=== PATIENT | female | born 1950 | race Caucasian/White ===

== ENCOUNTER 2017-08-26 00:01 | Emergency (ER) | payer MEDICAID ==
[2017-08-26 00:07] VITALS: O2SAT 98
--- NOTE | 2017-08-26 04:06 | ED PDOC ---
HPI: Back Time Seen by Provider: 08/26/17 01:24 Chief Complaint (Nursing): Back Pain Chief Complaint (Provider): Back Pain History Per: Patient History/Exam Limitations: no limitations Onset/Duration Of Symptoms: Days (x 1) Current Symptoms Are (Timing): Still Present Quality Of Discomfort: "Pain" Additional Complaint(s): 67 year old female with a history of back pain (for years), DM and HTN presents to the ED complaining of back pain. Patient states pain was bothering her so she called EMS from the senior living. Admits she gets a rash from tags on her clothes. She took no mediation prior to arrival. Denies numbness, weakness, chest pain, shortness of breath, and bladder or bowel incontinence. PMD: Dr. Puma Pierson MD Past Medical History Reviewed: Historical Data, Nursing Documentation, Vital Signs Vital Signs: Last Vital Signs Temp 97.9 F 08/26/17 00:04 Pulse 83 08/26/17 00:04 Resp 16 08/26/17 00:04 BP 150/79 08/26/17 00:04 Pulse Ox 98 08/26/17 00:04 - Medical History PMH: Arthritis, Back Problems, Hypothyroidism - Surgical History Surgical History: No Surg Hx - Family History Family History: States: Unknown Family Hx - Home Medications Home Medications: Ambulatory Orders Medication Instructions Recorded Cyclobenzaprine [Cyclobenzaprine 10 mg PO BID #15 tab 08/26/17 HCl] Naproxen [Naprosyn] 500 mg PO BID #30 tablet 08/26/17 - Allergies Allergies/Adverse Reactions: Allergies Allergy/AdvReac Type Severity Reaction Status Date / Time No Known Allergies Allergy Verified 08/26/17 02:18 Review of Systems ROS Statement: Except As Marked, All Systems Reviewed And Found Negative Genitourinary Female: Negative for: Incontinence (bladder or bowel) Musculoskeletal: Positive for: Back Pain Neurological: Negative for: Weakness, Numbness Physical Exam - Reviewed Nursing Documentation Reviewed: Yes Vital Signs Reviewed: Yes - Physical Exam Appears: Positive for: Non-toxic, No Acute Distress Head Exam: Positive for: ATRAUMATIC, NORMOCEPHALIC Skin: Positive for: Normal Color (evidence of contact dermatitis in lumbar region of spine), Warm, Dry Eye Exam: Positive for: EOMI, Normal appearance, PERRL Neck: Positive for: Normal, Painless ROM, Supple Cardiovascular/Chest: Positive for: Regular Rate, Rhythm Respiratory: Positive for: Normal Breath Sounds. Negative for: Respiratory Distress Gastrointestinal/Abdominal: Positive for: Normal Exam, Soft Back: Positive for: Other ( tenderness to midline and paravertebral musculature in lumbar region). Negative for: Normal Inspection ((-) stepoff) - ECG O2 Sat by Pulse Oximetry: 98 (RA) Pulse Ox Interpretation: Normal Medical Decision Making Medical Decision Making: Time: 01:24 Impression: lower back pain for years in patient with arthritis in acute flare up A/P: --not concerned for serious pathology like cauda equina syndrome, nerve impingement syndrome or AAA. --Likely arthritic flare up Initial Plan: --Flexeril 10 mg PO --Toradol 30 mg PO 0700 Patient ambulatory, feeling better, stable for discharge. Advised to f/u w/ PMD. Scribe Attestation: Documented by Megan Velarde acting as a scribe for Fede Jacob MD. Scribe Attestation: All medical record entries made by the Scribe were at my direction and personally dictated by me. I have reviewed the chart and agree that the record accurately reflects my personal performance of the history, physical exam, medical decision making, and the department course for this patient. I have also personally directed, reviewed, and agree with the discharge instructions and disposition. Disposition - Clinical Impression Clinical Impression: Back pain - Disposition Referrals: Puma Pierson MD [Primary Care Provider] - Disposition: Routine/Home Disposition Time: 07:00 Condition: IMPROVED Prescriptions: Cyclobenzaprine [Cyclobenzaprine HCl] 10 mg PO BID #15 tab Naproxen [Naprosyn] 500 mg PO BID #30 tablet Instructions: Low Back Pain (DC) Forms: [employer] (Azeri)
[2017-08-26 07:31] VITALS: BP 144/70; PULSE 85; RESP 18; TEMP 98
== END 2017-08-26 07:37 | disposition home or self-care (01) ==
LOC: H.ER 00:01
DX: M54.9 Dorsalgia, unspecified (principal)
CPT/HCPCS: 96372; 99282; J1885

== ENCOUNTER 2017-09-13 19:13 | Emergency (ER) | payer MEDICARE, MEDICAID ==
--- NOTE | 2017-09-13 19:44 | ED PDOC ---
HPI: Eye Injury/Pain Time Seen by Provider: 09/13/17 19:20 Chief Complaint (Nursing): Eye Problem Chief Complaint (Provider): Eye Redness History Per: Home Paraprofessional (Reba Mcmillan #[id number]) History/Exam Limitations: no limitations Onset/Duration Of Symptoms: Days (x7) Current Symptoms Are (Timing): Still Present Additional Complaint(s): 67 year old female was brought to the emergency department via EMS complaining of bilateral eye redness beginning six days ago. She denies any pain or discharge from either eye. However, she does complain of itchiness to both eyes. Denies history of seasonal allergies. Patient was seen by an eye doctor and prescribed glasses and Tobradex eye drops. The eye drops were filled today and have been used twice, without any improvement. States she was kicked out of the retirement in [place] due to her eye redness. PMD: Provider TBD Past Medical History Reviewed: Historical Data, Nursing Documentation, Vital Signs Vital Signs: Last Vital Signs Temp 98 F 09/13/17 19:15 Pulse 98 H 09/13/17 19:15 Resp 18 09/13/17 19:15 BP 160/97 H 09/13/17 19:15 Pulse Ox 98 09/13/17 19:15 - Medical History PMH: Arthritis, Back Problems, HTN, Hypothyroidism, Osteoporosis - Surgical History Other surgeries: bilateral cataract surgery - Family History Family History: States: Unknown Family Hx - Living Arrangements Living Arrangements: Other (undomiciled) - Social History Current smoker - smoking cessation education provided: No Alcohol: None Drugs: Denies - Home Medications Home Medications: Ambulatory Orders Medication Instructions Recorded Cyclobenzaprine [Cyclobenzaprine 10 mg PO BID #15 tab 08/26/17 HCl] Naproxen [Naprosyn] 500 mg PO BID #30 tablet 08/26/17 - Allergies Allergies/Adverse Reactions: Allergies Allergy/AdvReac Type Severity Reaction Status Date / Time No Known Allergies Allergy Verified 08/26/17 02:18 Review of Systems ROS Statement: Except As Marked, All Systems Reviewed And Found Negative Eyes: Positive for: Redness, Other (itchy). Negative for: Pain, Vision Change Physical Exam - Reviewed Nursing Documentation Reviewed: Yes Vital Signs Reviewed: Yes - Physical Exam Appears: Positive for: Non-toxic, No Acute Distress Head Exam: Positive for: ATRAUMATIC, NORMAL INSPECTION, NORMOCEPHALIC Skin: Positive for: Normal Color, Warm, Dry Eye Exam: Positive for: EOMI, PERRL, Conjunctival injection (bilateral) Comments: Visual acuity performed: --left 20/30 --right 20/30 - ECG O2 Sat by Pulse Oximetry: 98 (RA) Pulse Ox Interpretation: Normal Medical Decision Making Medical Decision Making: Initial Impression: Conjunctivitis Time: 19:54 Plan: --Will call retirement Eyes examined with flourescein, no uptake noted. Scribe Attestation: Documented by Shanon Andrews, acting as a scribe for Evy Powell PA-C Provider Scribe Attestation: All medical record entries made by the Scribe were at my direction and personally dictated by me. I have reviewed the chart and agree that the record accurately reflects my personal performance of the history, physical exam, medical decision making, and the department course for this patient. I have also personally directed, reviewed, and agree with the discharge instructions and disposition. Disposition - Clinical Impression Clinical Impression: Conjunctivitis - Patient ED Disposition Is Patient to be Admitted: No - Disposition Disposition: Routine/Home Disposition Time: 23:40 Condition: FAIR Instructions: Conjunctivitis (Noninfectious Pinkeye), Conjunctivitis ( Noninfectious Pinkeye) (DC) Forms: [facility] (C[place]riot), [facility] School/Work Excuse
[2017-09-14 04:29] VITALS: BP 142/82; PULSE 82; RESP 16; TEMP 98.6; O2SAT 98
== END 2017-09-14 04:50 | disposition short-term general hospital (02) ==
LOC: H.ER 19:13
DX: H10.9 Unspecified conjunctivitis (principal); I10 Essential (primary) hypertension; E03.9 Hypothyroidism, unspecified; M81.0 Age-related osteoporosis without current pathological fracture

== ENCOUNTER 2017-09-16 16:47 | Emergency (ER) | payer MEDICAID, MEDICARE ==
[2017-09-16 16:50] VITALS: BP 151/80; PULSE 105; RESP 16; TEMP 98.1; O2SAT 96
--- NOTE | 2017-09-16 18:09 | ED PDOC ---
Lower Extremity Pain/Injury Time Seen by Provider: 09/16/17 17:42 Chief Complaint (Nursing): Lower Extremity Problem/Injury Chief Complaint (Provider): leg pains History Per: Patient, Weather Observer (petr cobian #[id number]) Onset/Duration Of Symptoms: Waxing/Waning, Gradual Current Symptoms Are (Timing): Still Present Severity: Moderate Additional History Per: Prior Records Additional Complaint(s): 67yo female presents via EMS c/o body and leg pains, states legs feel swollen. Admits to sleeping at a half-way, often in a chair. Denies fever, trauma/falls or SOB. Past Medical History Reviewed: Historical Data, Nursing Documentation Vital Signs: Last Vital Signs Temp 98.1 F 09/16/17 16:48 Pulse 105 H 09/16/17 16:48 Resp 16 09/16/17 16:48 BP 151/80 H 09/16/17 16:48 Pulse Ox 96 09/16/17 16:48 - Medical History PMH: Arthritis, Back Problems, HTN, Hypothyroidism, Osteoporosis - Family History Family History: States: Unknown Family Hx - Living Arrangements Living Arrangements: Other (half-way) - Social History Current smoker - smoking cessation education provided: No - Home Medications Home Medications: Ambulatory Orders Medication Instructions Recorded Cyclobenzaprine [Cyclobenzaprine 10 mg PO BID #15 tab 08/26/17 HCl] Naproxen [Naprosyn] 500 mg PO BID #30 tablet 08/26/17 Ibuprofen [Motrin Tab] 600 mg PO Q6 PRN #15 tab 09/16/17 - Allergies Allergies/Adverse Reactions: Allergies Allergy/AdvReac Type Severity Reaction Status Date / Time No Known Allergies Allergy Verified 08/26/17 02:18 Review of Systems Constitutional: Negative for: Fever, Chills Cardiovascular: Negative for: Chest Pain Respiratory: Negative for: Cough, Shortness of Breath Gastrointestinal: Negative for: Abdominal Pain Genitourinary Female: Negative for: Dysuria Musculoskeletal: Positive for: Shoulder Pain, Back Pain, Leg Pain, Foot Pain Skin: Negative for: Rash Neurological: Negative for: Weakness, Seizures, Altered Mental Status Psych: Negative for: Suicidal ideation Physical Exam - Reviewed Nursing Documentation Reviewed: Yes Vital Signs Reviewed: Yes - Physical Exam Appears: Positive for: Well, Non-toxic, No Acute Distress Head Exam: Positive for: ATRAUMATIC, NORMAL INSPECTION, NORMOCEPHALIC Skin: Positive for: Normal Color, Warm (cultural not allow full skin exam) Eye Exam: Positive for: EOMI, Normal appearance, PERRL ENT: Positive for: Normal ENT Inspection Neck: Positive for: Normal, Painless ROM Cardiovascular/Chest: Positive for: Regular Rate, Rhythm Respiratory: Positive for: CNT, Normal Breath Sounds Gastrointestinal/Abdominal: Positive for: Normal Exam, Soft Back: Positive for: Normal Inspection Extremity: Positive for: Pedal Edema (b/l LE), Swelling, Other (mild LE erythema chronic appearing, poor LE hygiene). Negative for: Deformity Neurologic/Psych: Positive for: Alert, Oriented - Laboratory Results Result Diagrams: 09/16/17 18:00 09/16/17 18:00 - ECG O2 Sat by Pulse Oximetry: 96 Medical Decision Making Medical Decision Making: workup for likely chronic arthritis/ LE edema initiated Motrin ordered for pain Labs/ Duplex LE ordered Disposition - Clinical Impression Clinical Impression: Leg pain, Leg edema - Patient ED Disposition Is Patient to be Admitted: No - Disposition Referrals: [facility] [Outside] Disposition: Routine/Home Disposition Time: 19:30 Condition: STABLE Additional Instructions: Return to ER for any worse or new symptoms/ Prescriptions: Ibuprofen [Motrin Tab] 600 mg PO Q6 PRN #15 tab PRN Reason: Pain, Moderate (4-7) Instructions: Dependent Edema (DC) Forms: [facility] (Serbian)
[2017-09-16 18:19] LABS: BASO # 0.1 K/uL (0.0-0.2); BASO % 1.1 % (0.0-2.0); EOS # 0.1 K/uL (0.0-0.7); EOS % 1.5 % (0.0-4.0); HEMOGLOBIN 12.4 g/dL (12.0-16.0); LYMPH # 2.2 K/uL (1.0-4.3); MEAN CELL VOLUME 86.9 fl (81.0-99.0); MEAN CORPUSCULAR HEMOGLOBIN 29.2 pg (27.0-31.0); MEAN CORPUSCULAR HGB CONC 33.6 g/dL (33.0-37.0); MEAN PLATELET VOLUME 8.4 fl (7.2-11.7); MONO # 0.6 K/uL (0.0-0.8); MONO % 6.2 % (0.0-10.0); NEUT # 6.6 K/uL (1.8-7.0); NEUT % 68.2 % (50.0-75.0); NRBC % 0.1 % (0.0-0.0); RBC 4.26 Mil/uL (3.80-5.20); WHITE BLOOD COUNT 9.7 K/uL (4.8-10.8)
[2017-09-16 18:34] LABS: ALB/GLOB RATIO 1.1 (1.0-2.1); ALBUMIN 3.8 g/dL (3.5-5.0); ALT/SGPT 38 U/L (9-52); AST/SGOT 24 U/L (14-36); BLOOD UREA NITROGEN 19 mg/dl (7-17); CALCIUM 9.5 mg/dL (8.4-10.2); GFR AFRICAN-AMERICAN > 60; GFR NON-AFRICAN AMERICAN > 60
[2017-09-16 18:41] LABS: B-TYPE NATRIURETIC PEPTIDE 93.6 pg/ml (0-900)
--- NOTE | 2017-09-16 18:46 | US ---
PROCEDURE: Bilateral lower extremity venous duplex Doppler. HISTORY: leg pain/edema b/l COMPARISON: None available. TECHNIQUE: Bilateral common femoral, superficial femoral, popliteal and posterior tibial veins were evaluated. Flow was assessed with color Doppler, compressibility, assessment of phasic flow and augmentation response. FINDINGS: COMMON FEMORAL VEIN: Right CFV: Unremarkable. Left CFV: Unremarkable. SUPERFICIAL FEMORAL VEIN: Right SFV: Unremarkable. Left SFV: Unremarkable. POPLITEAL VEIN: Right Popliteal: Unremarkable. Left Popliteal: Unremarkable. POSTERIOR TIBIAL VEIN: Right PTV: Unremarkable. Left PTV: Unremarkable. OTHER FINDINGS: None. IMPRESSION: No definite sonographic evidence of deep venous thrombosis bilateral lower extremities. Prominent calf edema is seen at the left lower extremity subcutaneous space.
== END 2017-09-16 20:30 | disposition home or self-care (01) ==
LOC: H.ER 16:47
DX: R60.0 Localized edema (principal); M79.605 Pain in left leg; M79.604 Pain in right leg; I10 Essential (primary) hypertension; M81.0 Age-related osteoporosis without current pathological fracture; E03.9 Hypothyroidism, unspecified

== ENCOUNTER 2017-09-23 23:15 | Emergency (ER) | payer MEDICAID, MEDICARE ==
[2017-09-23 23:19] VITALS: TEMP 97.7
--- NOTE | 2017-09-24 00:26 | ED PDOC ---
Lower Extremity Pain/Injury Time Seen by Provider: 09/23/17 23:24 Chief Complaint (Nursing): Lower Extremity Problem/Injury Chief Complaint (Provider): lower extremity swelling History Per: Patient, Quarrying Manager (aranza [id number]) History/Exam Limitations: no limitations Onset/Duration Of Symptoms: Days Current Symptoms Are (Timing): Still Present Additional Complaint(s): 67 y/o female brought in by EMS with complaints of bilateral leg pain/swelling x weeks. Patient is homeless, states she was at the train station waiting to go to [place] for an appointment she has there in the morning and that she did not want to come here tonight but EMS told her her blood pressure was high so she had to. Patient also notes bilateral eye redness, for which she just filled an rx for Tobradex and has not started taking yet. Denies headache, dizziness, drainage from eyes, chest pain, shortness of breath, palpitations, recent travel. Past Medical History Reviewed: Historical Data, Nursing Documentation, Vital Signs Vital Signs: Last Vital Signs Temp 97.7 F 09/23/17 23:17 Pulse 90 09/23/17 23:17 Resp 17 09/23/17 23:17 BP 141/83 09/23/17 23:17 Pulse Ox 96 09/23/17 23:17 - Medical History PMH: Arthritis, Back Problems, HTN, Hypothyroidism, Osteoporosis - Family History Family History: States: Unknown Family Hx - Living Arrangements Living Arrangements: Alone (homeless) - Home Medications Home Medications: Ambulatory Orders Medication Instructions Recorded Cyclobenzaprine [Cyclobenzaprine 10 mg PO BID #15 tab 08/26/17 HCl] Naproxen [Naprosyn] 500 mg PO BID #30 tablet 08/26/17 Ibuprofen [Motrin Tab] 600 mg PO Q6 PRN #15 tab 09/16/17 - Allergies Allergies/Adverse Reactions: Allergies Allergy/AdvReac Type Severity Reaction Status Date / Time No Known Allergies Allergy Verified 08/26/17 02:18 Review of Systems ROS Statement: Except As Marked, All Systems Reviewed And Found Negative Musculoskeletal: Positive for: Leg Pain Physical Exam - Reviewed Nursing Documentation Reviewed: Yes Vital Signs Reviewed: Yes - Physical Exam Appears: Positive for: Well, Non-toxic, No Acute Distress Head Exam: Positive for: ATRAUMATIC, NORMAL INSPECTION, NORMOCEPHALIC Skin: Positive for: Normal Color Eye Exam: Positive for: Normal appearance ENT: Positive for: Normal ENT Inspection Respiratory: Positive for: Normal Breath Sounds Gastrointestinal/Abdominal: Positive for: Normal Exam Back: Positive for: Normal Inspection Extremity: Positive for: Normal ROM, Swelling (1+ pitting edema) Neurologic/Psych: Positive for: Alert, Oriented - ECG O2 Sat by Pulse Oximetry: 96 Disposition - Disposition Referrals: Bridgette Dangelo MD [Primary Care Provider] -
[2017-09-24 02:14] VITALS: BP 113/61; PULSE 89; RESP 16; O2SAT 100
== END 2017-09-24 02:43 | disposition home or self-care (01) ==
LOC: H.ER 23:15
DX: R60.0 Localized edema (principal); E03.9 Hypothyroidism, unspecified; I10 Essential (primary) hypertension; M81.0 Age-related osteoporosis without current pathological fracture
CPT/HCPCS: 96372; 99284; J1885